=== PATIENT | female | born 1940 | race Caucasian/White ===

== ENCOUNTER → 2024-10-11 10:34 | Outpatient (CLI) | payer MEDICARE, MEDICAID, SELFPAY ==
--- NOTE | 2024-10-11 10:36 | DI.RAD.S_ITS ---
PROCEDURE: XR KNEE 2V WB RIGHT INDICATIONS: Right Knee Pain TECHNIQUE: 3 views of the knee(s) COMPARISON: None. FINDINGS: Bones: No acute fractures or dislocations. Patellar alignment is normal on the sunrise view. No suspicious bony lesions. Moderate to severe tricompartmental osteoarthritis in right knee is noted most notably in medial femoral tibial compartment. Soft tissues: No knee joint effusions. Abnormal metallic densities are noted in medial aspect of bilateral knee soft tissues. IMPRESSION: Moderate to severe tricompartmental osteoarthritis most notably in medial femoral tibial compartment. Metallic foreign bodies in bilateral knee soft tissue. No significant joint effusion. Dictated by: Chad Kingsley M.D. on 10/11/2024 at 19:54 Approved by: Chad Kingsley M.D. on 10/11/2024 at 19:55
== END ==
PROVIDERS: PCP Student in an Organized Health Care Education/Training Program; Referring Provider Urology; Visit Provider Urology
DX: M17.11 Unilateral primary osteoarthritis, right knee (principal); M25.561 Pain in right knee; M79.5 Residual foreign body in soft tissue
CPT/HCPCS: 73560

== ENCOUNTER 2024-10-17 10:03 | Emergency (ER) | payer MEDICARE, MEDICAID, SELFPAY ==
[2024-10-17] VITALS (29 sets, daily range): BP systolic 130–178; BP diastolic 73–108; PULSE 61–171; RESP 13–24; TEMP 36.6; O2SAT 96–100
--- NOTE | 2024-10-17 10:14 | EKG_ITS ---
[place] [id number] [place] [id number] Test Date: 2024-10-17 Pat Name: [place] Heath Department: Room: Gender: Female Concessionist: VERNA : 1940 Requested By: Order Number: [id number] Reading MD: Devante Shah MD Measurements Intervals [place] Rate: 166 P: TN: QRS: 74 QRSD: 96 T: 213 QT: 242 QTc: 402 Interpretive Statements Critical Test Result: High HR Atrial fibrillation with rapid ventricular response ST & T wave abnormality, consider inferior ischemia NO PRIOR TRACING Electronically Signed On 10-18-2024 7:20:44 PDT by Devante Shah MD
--- NOTE | 2024-10-17 10:18 | ED.GENADULT ---
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 She reported experiencing slight shortness of breath, which she attributed to seasonal allergies. Her DPOA and friend, who accompanied her, noted that Indiana's blood pressure had been fluctuating since the previous night. Indiana has a history of intermittent atrial fibrillation and is on Eliquis as a blood thinner. She is also prescribed Metoprolol, which she usually takes at 8:30 AM, but had not taken it today. Indiana recently visited an orthopedic doctor and received a knee injection. [place]'s DPOA mentioned concerns about mood swings and confusion regarding medication routine. She denies any physical symptoms otherwise. Related Data Home Medications Medication Instructions Recorded Confirmed ondansetron 4 mg disintegrating 4 mg PO Q6H 09/12/24 10/16/24 tablet Previous Rx's Medication Instructions Recorded apixaban 5 mg tablet (Eliquis) 5 mg PO BID #60 tabs 09/12/24 atorvastatin 20 mg tablet 20 mg PO DAILY #90 tabs 09/12/24 digoxin 125 mcg (0.125 mg) tablet 125 mcg PO DAILY #90 tabs 09/12/24 fluticasone propionate 50 1 spray intranasal DAILY #16 grams 09/12/24 mcg/actuation nasal spray,suspension lisinopril 2.5 mg tablet 2.5 mg PO DAILY #30 tabs 09/12/24 metoprolol succinate 25 mg 75 mg (3 x 25 mg) PO DAILY #90 tabs 09/12/24 tablet,extended release 24 hr quetiapine 25 mg tablet 25 mg PO BID #60 tabs 09/12/24 quetiapine 50 mg tablet 50 mg PO BEDTIME #60 tabs 09/12/24 spironolactone 25 mg tablet 25 mg PO DAILY #30 tabs 09/12/24 lactulose 10 gram/15 mL oral 15 g (22.5 mL) PO TID #3,785 mL 10/15/24 solution diltiazem HCl 120 mg 120 mg PO DAILY #30 tabs 10/17/24 tablet,extended release 24 hr (Cardizem LA) Allergies Allergy/AdvReac Type Severity Reaction Status Date / Time Penicillins Allergy Severe Anaphylaxis Verified 10/16/24 09:57 codeine AdvReac Unknown Anxiety Verified 10/16/24 09:57 Review of Systems Review of Systems Narrative: All systems reviewed and unremarkable except as noted in the HPI Patient History Medical History (Updated 10/17/24 @ 17:50 by Curt Quinones MD) Primary osteoarthritis of right knee Social History Smoking Status: Unknown if ever smoked Exam Narrative Exam Narrative: VS as noted above Focused physical exam as follows: General: Well developed, well nourished, no acute distress HEENT: pink palpebral conjunctiva, anicteric sclera, MAGGIE, moist mucous membranes, no JVD, no cervical lymphadenopathy Lungs: no respiratory distress, clear to auscultation without wheezes or crackles; equal breath sounds Heart: irregular rhythm, tachycardic Abdomen: soft, nontender, no rebound or rigidity Musculoskeletal: no gross deformities with full ROM in all extremities, no pitting pedal edema Skin: pink, warm; no rashes Neuro: nonfocal exam Psyche: no SI/HI, normal affect Initial Vital Signs Initial Vital Signs: Vital Signs Pulse Rate 61 10/17/24 10:12 Pulse Oximetry 96 10/17/24 10:12 Course Course Course Narrative: Initial VS noted above. ? PMHx, PSHx, Medication list, social history reviewed as noted above. Differential diagnosis considered include (but not limited to) the following: uncontrolled HTN, cardiac dysrhythmia, ACS, electrolyte imbalance, liver or kidney failure, symptomatic anemia, poor med compliance, dehydration, UTI Pt interviewed and examined. No complaints of chest pain, palpitations, shortness of breath, nausea or vomiting. Bedside EKG showed Afib with RVR. Pt did not take her Metoprolol earlier today. Metoprolol 5mg IV ordered. PO Metoprolol given. Still in Afib with RVR. Additional Metoprolol IV ordered. Her usual Digoxin PO dose ordered. Still in Afib with RVR. Paged Dr. Desai (product marketing programs manager) - he advised to give Cardizem IV to help with rate control and if successful, can follow up with cardiology as an outpt. Cardizem IV ordered and HR improved to the 80s now. Discussed plan of care with pt - will place on Cardizem 120mg PO. Stable for discharge. Orders Ordered: Discontinued Medications Digoxin (Digoxin 0.125 Mg Tablet) 0.125 mg PO NOW ONE Stop: 10/17/24 14:21 Last Admin: 10/17/24 14:24 Dose: 0.125 mg Documented By: LEWIS Diltiazem HCl (Diltiazem 25 Mg/5 Ml Sdv) 10 mg IV NOW ONE Stop: 10/17/24 16:39 Last Admin: 10/17/24 16:47 Dose: 10 mg Documented By: LEWIS Metoprolol Succinate (Metoprolol Er 50 Mg Tablet) 75 mg PO NOW ONE Stop: 10/17/24 11:35 Last Admin: 10/17/24 11:52 Dose: 75 mg Documented By: LEWIS Metoprolol Tartrate (Metoprolol Tartrate 5 Mg/5 Ml Inj) 5 mg IV NOW ONE Stop: 10/17/24 10:28 Last Admin: 10/17/24 10:38 Dose: 5 mg Documented By: FRANCO Metoprolol Tartrate (Metoprolol Tartrate 5 Mg/5 Ml Inj) 5 mg IV NOW ONE Stop: 10/17/24 12:40 Last Admin: 10/17/24 12:56 Dose: 5 mg Documented By: LEWIS Vital Signs Vital signs: Vital Signs - 8 hr 10/17/24 10:12 10/17/24 10:15 10/17/24 10:15 Temperature Pulse Rate 61 171 H Respiratory Rate 17 Blood Pressure 169/105 H Pulse Oximetry 96 98 Oxygen Delivery Method 10/17/24 10:22 10/17/24 10:30 10/17/24 10:30 Temperature 98 F Pulse Rate 166 H 164 H Respiratory Rate 18 19 Blood Pressure 169/105 H 178/103 H Pulse Oximetry 99 99 Oxygen Delivery Method Room Air 10/17/24 10:43 10/17/24 10:43 10/17/24 11:00 Temperature Pulse Rate 119 H 138 H Respiratory Rate 14 24 Blood Pressure 150/76 H Pulse Oximetry 98 97 Oxygen Delivery Method 10/17/24 11:01 10/17/24 11:01 10/17/24 11:30 Temperature Pulse Rate 133 H 118 H Respiratory Rate 18 24 Blood Pressure 143/106 H Pulse Oximetry 98 98 Oxygen Delivery Method 10/17/24 11:52 10/17/24 11:56 10/17/24 11:56 Temperature Pulse Rate 104 H 136 H Respiratory Rate 20 Blood Pressure 143/106 H 146/92 H Pulse Oximetry Oxygen Delivery Method 10/17/24 12:00 10/17/24 12:30 10/17/24 12:30 Temperature Pulse Rate 132 H 137 H Respiratory Rate 16 21 Blood Pressure 130/90 Pulse Oximetry 99 99 Oxygen Delivery Method 10/17/24 12:56 10/17/24 13:00 10/17/24 13:00 Temperature Pulse Rate 137 H 127 H Respiratory Rate 22 Blood Pressure 130/90 138/73 Pulse Oximetry 98 Oxygen Delivery Method 10/17/24 13:07 10/17/24 13:30 10/17/24 13:31 Temperature Pulse Rate 119 H 98 H 103 H Respiratory Rate 19 18 Blood Pressure 138/73 Pulse Oximetry 98 98 Oxygen Delivery Method 10/17/24 13:31 10/17/24 14:00 10/17/24 14:00 Temperature Pulse Rate 97 H Respiratory Rate 24 Blood Pressure 153/108 H 143/80 H Pulse Oximetry 98 Oxygen Delivery Method 10/17/24 14:24 10/17/24 14:30 10/17/24 15:00 Temperature Pulse Rate 104 H 141 H 142 H Respiratory Rate 20 18 Blood Pressure 143/80 H Pulse Oximetry 97 97 Oxygen Delivery Method 10/17/24 15:00 10/17/24 15:30 10/17/24 15:30 Temperature Pulse Rate 91 H Respiratory Rate 15 Blood Pressure 140/91 H 148/87 H Pulse Oximetry 97 Oxygen Delivery Method 10/17/24 16:00 10/17/24 16:01 10/17/24 16:01 Temperature Pulse Rate 131 H 142 H Respiratory Rate 14 16 Blood Pressure 144/86 H Pulse Oximetry 100 100 Oxygen Delivery Method 10/17/24 16:30 10/17/24 16:47 10/17/24 17:00 Temperature Pulse Rate 120 H 126 H 145 H Respiratory Rate 13 18 Blood Pressure 172/102 H Pulse Oximetry 98 97 Oxygen Delivery Method 10/17/24 17:01 10/17/24 17:01 10/17/24 17:30 Temperature Pulse Rate 138 H 81 Respiratory Rate 20 19 Blood Pressure 172/102 H Pulse Oximetry 97 97 Oxygen Delivery Method 10/17/24 17:30 Temperature Pulse Rate Respiratory Rate Blood Pressure 145/87 H Pulse Oximetry Oxygen Delivery Method Medical Decision Making Lab Data 10/17/24 10:40 10/17/24 10:40 Labs: Lab Results 10/17/24 10/17/24 10/17/24 Range/Units 10:10 10:40 12:23 WBC 9.3 (4.5-11.0) X10^3/uL RBC 4.17 (4.0-5.2) X10^6/uL Hgb 13.7 (12.0-16.0) g/dL Hct 41.6 (36-46) % MCV 99.9 (80-100) fL MCH 33.0 (26-34) PG MCHC 33.0 (30-36) % RDW 14.6 (11.6-14.8) % Plt Count 213 (150-400) X10^3/uL Neut % (Auto) 78.7 H (50-75) % Lymph % (Auto) 13.5 L (25-40) % [place] % (Auto) 7.5 (3-14) % Eos % (Auto) 0.1 L (2-4) % Baso % (Auto) 0.2 (0-2) % Neut # (Auto) 7300 H (5153-7878) /uL Lymph # (Auto) 1300 (3621-0580) /uL [place] # (Auto) 700 (0-900) /uL Eos # (Auto) 0 (0-450) /uL Baso # (Auto) 0 (0-100) /uL PT 13.1 H (9.4-12.5) SECONDS INR 1.2 (0.9-1.3) APTT 36 (25.1-36.5) SECONDS Sodium 138 (137-145) mmol/L Potassium 5.1 (3.4-5.1) mmol/L Chloride 111 H (98-107) mmol/L Carbon Dioxide 16 L (22-32) mmol/L BUN 52 H (7-17) mg/dL Creatinine 1.53 H (0.52-1.04) mg/dL Estimated GFR 34 L (>60) mL/min BUN/Creatinine Ratio 34.0 H (6-22) Glucose 119 H (70-99) mg/dL Calcium 10.0 (8.4-10.2) mg/dL Total Bilirubin 0.8 (0.2-1.3) mg/dL AST 30 (14-36) IU/L ALT 26 (<35) IU/L Alkaline Phosphatase 90 (38-126) U/L Ammonia (9-30) umol/L Total Creatine Kinase 51 (30-135) U/L Troponin I 0.013 (0.01-0.034) ng/mL Total Protein 8.0 (6.3-8.2) g/dL Albumin 4.5 (3.5-5.0) g/dL Globulin 3.5 (1.7-4.1) g/dL Albumin/Globulin Ratio 1.3 (1.0-2.8) Urine Color Yellow Urine Appearance Clear Urine pH 6.0 (4.5-8.0) Ur Specific [place] 1.020 (1.000-1.035) Urine Protein Negative (Negative) Urine Glucose (UA) Negative (Negative) g/dL Urine Ketones Negative (NEGATIVE) Urine Occult Blood Trace-intact (Negative) Urine Nitrate Negative (Negative) Urine Bilirubin Negative (NEGATIVE) Urine Urobilinogen 0.2 (0.2) E.U./dL Ur Leukocyte Esterase Trace H (NEGATIVE) Urine RBC 0-1/hpf (0-5/HPF) Urine WBC 0-1/hpf (0-5/HPF) Ur Squamous Epith Cells 1-5 /hpf (0-5/HPF) Urine Bacteria Moderate (10-30) H (None) Ur Culture Indicated? Specimen cultured Vol Urine Centrifuged 10ml (spun) Digoxin < 0.4 L (0.8-2.0) ng/mL 10/17/24 Range/Units 17:15 WBC (4.5-11.0) X10^3/uL RBC (4.0-5.2) X10^6/uL Hgb (12.0-16.0) g/dL Hct (36-46) % MCV (80-100) fL MCH (26-34) PG MCHC (30-36) % RDW (11.6-14.8) % Plt Count (150-400) X10^3/uL Neut % (Auto) (50-75) % Lymph % (Auto) (25-40) % [place] % (Auto) (3-14) % Eos % (Auto) (2-4) % Baso % (Auto) (0-2) % Neut # (Auto) (3152-5462) /uL Lymph # (Auto) (6865-8215) /uL [place] # (Auto) (0-900) /uL Eos # (Auto) (0-450) /uL Baso # (Auto) (0-100) /uL PT (9.4-12.5) SECONDS INR (0.9-1.3) APTT (25.1-36.5) SECONDS Sodium (137-145) mmol/L Potassium (3.4-5.1) mmol/L Chloride (98-107) mmol/L Carbon Dioxide (22-32) mmol/L BUN (7-17) mg/dL Creatinine (0.52-1.04) mg/dL Estimated GFR (>60) mL/min BUN/Creatinine Ratio (6-22) Glucose (70-99) mg/dL Calcium (8.4-10.2) mg/dL Total Bilirubin (0.2-1.3) mg/dL AST (14-36) IU/L ALT (<35) IU/L Alkaline Phosphatase (38-126) U/L Ammonia < 9 L (9-30) umol/L Total Creatine Kinase (30-135) U/L Troponin I (0.01-0.034) ng/mL Total Protein (6.3-8.2) g/dL Albumin (3.5-5.0) g/dL Globulin (1.7-4.1) g/dL Albumin/Globulin Ratio (1.0-2.8) Urine Color Urine Appearance Urine pH (4.5-8.0) Ur Specific [place] (1.000-1.035) Urine Protein (Negative) Urine Glucose (UA) (Negative) g/dL Urine Ketones (NEGATIVE) Urine Occult Blood (Negative) Urine Nitrate (Negative) Urine Bilirubin (NEGATIVE) Urine Urobilinogen (0.2) E.U./dL Ur Leukocyte Esterase (NEGATIVE) Urine RBC (0-5/HPF) Urine WBC (0-5/HPF) Ur Squamous Epith Cells (0-5/HPF) Urine Bacteria (None) Ur Culture Indicated? Vol Urine Centrifuged Digoxin (0.8-2.0) ng/mL Point of Care Testing Glucose POC 93 Point of care testing: Point of Care Testing Glucose POC 93 Imaging Data Chest x-ray: Radiologist's Impression: No acute process ECG Data Attestation: I personally reviewed and interpreted this ECG as follows: (1016 = Afib with RVR @ 166; nonspecific STTW changes; QTc 402) Interpretation: Repeat EKG read @ 1125 - Afib @ 97; nonspecific STTW changes; QTc 426 MDM Narrative Medical decision making narrative: MDM HPI, PMHx, PSHx, Medication list, Allergies, ROS and Focused exam were reviewed above.? Differential diagnosis as noted above.? Social determinants affecting care considered (as listed).? All of these were taken into consideration warranting above listed work up.? Consultations as deemed necessary were documented above (if listed). Labs (if ordered and noted above) were independently reviewed by me. Imaging studies (if ordered and noted above) were independently reviewed by me EKG (if noted above) was independently reviewed by me External documents (if reviewed) are documented above Critical Care Time Critical Care Time Critical Care Time: Yes Total Critical Care Time: 60 Attestation: Afib with RVR - multiple doses of IV meds given Discharge Plan Departure Patient Disposition: Home Clinical Impression: Atrial fibrillation with rapid ventricular response Instructions: DI for Atrial Fibrillation Activity Restrictions/Additional Instructions: Continue all current medications. Add Cardizem to your meds to help regulate your heart rate and blood pressure. Follow up with your product marketing programs manager in the next few days. Return to the ER if with worsening symptoms or heart rate over 120. Prescriptions: New diltiazem HCl [Cardizem LA] 120 mg tablet extended release 24 hr 120 mg PO DAILY Qty: 30 0RF No Action ondansetron 4 mg tablet,disintegrating 4 mg PO Q6H Eliquis 5 mg tablet 5 mg PO BID Qty: 60 3RF atorvastatin 20 mg tablet 20 mg PO DAILY Qty: 90 3RF digoxin 125 mcg (0.125 mg) tablet 125 mcg PO DAILY Qty: 90 3RF Rx Instructions: hold if HR < 60 fluticasone propionate 50 mcg/actuation spray,suspension 1 spray intranasal DAILY Qty: 16 3RF Rx Instructions: administer into each nostril metoprolol succinate 25 mg tablet extended release 24 hr 75 mg PO DAILY Qty: 90 3RF quetiapine 25 mg tablet 25 mg PO BID Qty: 60 3RF lisinopril 2.5 mg tablet 2.5 mg PO DAILY Qty: 30 3RF spironolactone 25 mg tablet 25 mg PO DAILY Qty: 30 3RF quetiapine 50 mg tablet 50 mg PO BEDTIME Qty: 60 6RF lactulose 10 gram/15 mL solution 15 g PO TID Qty: 3785 3RF methylprednisolone acetate [Depo-Medrol] 40 mg/mL suspension 40 mg IM ONCE Qty: 40 0RF Referrals: Jaja Conrad MD [Primary Care Provider] - Stand Alone Forms: Patient Portal/API/Survey
--- NOTE | 2024-10-17 10:27 | DI.RAD.S_ITS ---
PROCEDURE: XR CHEST 1V INDICATIONS: hypertension TECHNIQUE: One view of the chest was acquired. COMPARISON: None. FINDINGS: Surgical changes and devices: None. Lungs and pleura: Lungs are clear. No pleural effusions or pneumothorax. Mediastinum: Mediastinal contours appear normal. Heart is enlarged. Bones and chest wall: No suspicious bony lesions. Overlying soft tissues appear unremarkable. IMPRESSION: No acute cardiopulmonary abnormality is seen. Dictated by: Michelle Ruby MD, PhD on 10/17/2024 at 11:04 Approved by: Michelle Ruby MD, PhD on 10/17/2024 at 11:05
[2024-10-17] MEDS: METOPROLOL TARTRATE 5 MG/5 ML INJ IV ×2 (10:38→12:56)
--- NOTE | 2024-10-17 10:46 | EKG_ITS ---
[address] [address] Test Date: 2024-10-17 Pat Name: [place] Heath Department: Room: Gender: Female Director Banking: : 1940 Requested By: Order Number: [id number] Reading MD: Devante Shah MD Measurements Intervals [place] Rate: 97 P: OR: QRS: 67 QRSD: 98 T: 72 QT: 336 QTc: 426 Interpretive Statements Atrial fibrillation Electronically Signed On 10-18-2024 7:21:16 PDT by Devante Shah MD
[2024-10-17 10:53] LABS: Add Manual Diff / Slide Review NO; Basophils Absolute Auto 0 /uL (0-100); Basophils Percent Auto 0.2 % (0-2); Eosinophils Absolute Auto 0 /uL (0-450); Eosinophils Percent Auto 0.1 % (2-4); Hematocrit 41.6 % (36-46); Hemoglobin 13.7 g/dL (12.0-16.0); Lymphocytes Absolute Auto 1300 /uL (1100-4500); Lymphocytes Percent Auto 13.5 % (25-40); Mean Corpuscular Volume 99.9 fL (80-100); Monocytes Absolute Auto 700 /uL (0-900); Monocytes Percent Auto 7.5 % (3-14); Neutrophils Absolute Auto 7300 /uL (1500-7000); Neutrophils Percent Auto 78.7 % (50-75); Platelet Count 213 X10^3/uL (150-400); Red Blood Cell Count 4.17 X10^6/uL (4.0-5.2); Red Cell Distribution Width 14.6 % (11.6-14.8); White Blood Cell Count 9.3 X10^3/uL (4.5-11.0)
[2024-10-17 11:00] LABS: INR 1.2 (0.9-1.3); Prothrombin Time 13.1 SECONDS (9.4-12.5)
[2024-10-17 11:02] LABS: PTT Partial Thromboplastin Tim 36 SECONDS (25.1-36.5)
[2024-10-17 11:06] LABS: Alanine Aminotransferase 26 IU/L (<35); Albumin 4.5 g/dL (3.5-5.0); Albumin Globulin Ratio 1.3 (1.0-2.8); Alkaline Phosphatase 90 U/L (38-126); Aspartate Aminotransferase 30 IU/L (14-36); Bilirubin Total 0.8 mg/dL (0.2-1.3); Blood Urea Nitrogen 52 mg/dL (7-17); Carbon Dioxide 16 mmol/L (22-32); Chloride 111 mmol/L (98-107); Creatine Kinase 51 U/L (30-135); Estimated Glomerular Filt Rate 34 mL/min (>60); Globulin 3.5 g/dL (1.7-4.1); Glucose 119 mg/dL (70-99); HEMOLYSIS 27 (0-50); Potassium 5.1 mmol/L (3.4-5.1); Sodium 138 mmol/L (137-145)
[2024-10-17 11:17] LABS: Troponin I 0.013 ng/mL (0.01-0.034)
[2024-10-17] MEDS: METOPROLOL ER 50 MG TABLET 75 MG PO (11:52)
[2024-10-17 12:38] LABS: Appearance Urine UA CLEAR; Bilirubin Urine UA NEGATIVE (NEGATIVE); Color Urine UA YELLOW; Glucose Urine UA NEGATIVE (Negative); Ketones Urine UA NEGATIVE (NEGATIVE); Leukocyte Esterase Urine UA TRACE (NEGATIVE); Nitrite Urine UA NEGATIVE (Negative); Occult Blood Urine UA TRACE-INTACT (Negative); Protein Urine UA NEGATIVE (Negative); Urobilinogen Urine UA 0.2 E.U./dL (0.2)
[2024-10-17 12:40] LABS: Urine Volume 10mL (spun)
[2024-10-17 12:43] LABS: Bacteria Urine Moderate (10-30); Culture Indicated Urine Specimen Cultured; RBC Urine 0-1/HPF (0-5/HPF); Squamous Epithelial Cell Urine 1-5 /HPF (0-5/HPF); WBC Urine 0-1/HPF (0-5/HPF)
[2024-10-17 13:32] LABS: Digoxin < 0.4 ng/mL (0.8-2.0)
[2024-10-17] MEDS: DIGOXIN 0.125 MG TABLET PO (14:24)
[2024-10-17] MEDS: dilTIAZem 25 MG/5 ML SDV 10 MG IV (16:47)
--- NOTE | 2024-10-17 17:31 | EKG_ITS ---
[address] [address] Test Date: 2024-10-17 Pat Name: [place] Heath Department: Room: Gender: Female Due Diligence Coordinator: BOUBACAR : 1940 Requested By: Order Number: [id number] Reading MD: Devante Shah MD Measurements Intervals [place] Rate: 80 P: AR: QRS: 82 QRSD: 102 T: 90 QT: 370 QTc: 426 Interpretive Statements Atrial fibrillation Cannot rule out Anterior infarct , age undetermined Electronically Signed On 10-18-2024 7:23:48 PDT by Devante Shah MD
[2024-10-17 17:38] LABS: Ammonia (NH3) < 9 umol/L (9-30)
== END 2024-10-17 18:06 | disposition home or self-care (01) ==
PROVIDERS: Emergency Provider Emergency Medicine; PCP Student in an Organized Health Care Education/Training Program
DX: I48.91 Unspecified atrial fibrillation (principal); R06.02 Shortness of breath; Z79.01 Long term (current) use of anticoagulants
CPT/HCPCS: 71045; 80053; 80162; 81001; 82140; 82550; 82962; 84484; 85025; 85610; 85730; 87086; 93005; 93010; 96374; 96375; 96376; 99284; 99291

== ENCOUNTER 2024-10-29 11:48 | Emergency (ER) | payer MEDICARE, MEDICAID, SELFPAY ==
[2024-10-29] VITALS (8 sets, daily range): BP systolic 113–153; BP diastolic 63–89; PULSE 75–91; RESP 16–22; TEMP 36.1–36.6; O2SAT 92–100
--- NOTE | 2024-10-29 13:38 | CM.SWNOTE ---
ED CNC OPERATOR MACHINIST Assessment Note: CNC OPERATOR MACHINIST - Rechecker Assessment CNC OPERATOR MACHINIST/Rechecker Assessment Time Spent with Patient Start date 10/29/24 Visit Start Time 12:30 End date 10/29/24 Visit End Time 13:00 Total time Care Management spent on 30 minutes patient visit-in minutes Mental Health Screening Include Onset, Duration, Intensity Presenting Problem Patient presented to the ED by the recommendation of her PCP (Dr. Jaja Lehman) because of her reports of visual hallucinations and delusions. Patient has a hx of stroke in December 2023, afib, and metabolic encephalopathy. Patient discussed with her PCP and is agreeable to inpatient treatment for medication stabilization. Precipitating Event(s) Patient states she has been having difficulty with sleep and having restful sleep due to some recent vivid dreams in which she has been having difficulty with determining if they are real vs. still a dream. Patient reports she has been experiencing hallucinations that have been manifesting from her dreams and her DPOA/friend confirms that they do not experience them. Patient Strengths Patient is supported by her friend/POA, Latha Tello (ph# [phone]) at bedside. It is reported that since her stroke and long rehab stay, her DPOA has been staying at her apartment for extra support. Current Behavioral Health Provider(s) None reported. Include Facility, Provider, Ph. # Psych. Hx Mental Health and Chemical Hx of hallucinations and Dependency delusions, currently taking quetiapine 20mg QAM and 75mg QPM. Family Hx of Behavioral Abuse None reported. Psychiatric Hospitalizations (date(s)/ None reported. location) Psychosocial information & Support Patient is a 84yo female, Systems resident of [facility]. Patient has a friend/DPOA staying with her in her apartment since August 2024. School/Work Patient is retired and not currently working. Legal Concerns Legal Matters - Outstanding Issues None reported. Mental Status Orientation (Person/Place/Time) AOx3 Affect (Congruent with Mood?) Congruent with mood, flat Thought Content - Specify/Describe Auditory: Denied. Obsessions, Delusions, Hallucinations Visual: The other day, I saw a narcisa from my dreams named Lawrence. He was in the elevator with me and (DPOA). He wasn't talking to me but he was in and out of the elevator and ( DPOA) couldn't see him. Thought Processes (Wtvnjyr-Yttumssd-Pxkq Logical, goal directed, Jiozbhee-Jczmknhe-Tftolkkmsj- thought blocking Yypzkbimxlxxci-Ffhyzoi-Lgcbcobzlvyp- Thought Blocking) Speech (Wruhcp-Aczu-Aqptbwt-Rapid-Soft- Normal, soft Loud-Pressured) Motor (Hbejtb-Hldqgcuoc-Mwma-Other) Slow Insight (Gzfk-Xlot-Xtov/Limited) Fair Judgement (Qaoc-Xmmz-Ietv/Limited) Fair Impulse Control (Adequate-Impaired) Adequate Memory (Bdsthoogp-Utcqbs-Bnrawv, Remote, parts counterman is intact Impaired-Intact) Concentration (Intact-Impaired) Intact Attention (Intact-Impaired) Intact Behavior (Appropriate-Inappropriate) Appropriate Additional Comment Patient is calm, cooperative and communicative during assessment. Risk Assessment Suicidal Ideation (Plan) No Homicidal Ideation (Plan) No Intervention Intervention Reviewed chart and discussed with ED Provider pt's medical status and discharge needs. Discussed pt with pt PCP who is referring pt to the ED for hallucations and possible inpatient psych treatment for medication stabilization. ED CNC OPERATOR MACHINIST meets with patient. Patient endorses having difficulty determining reality vs. dreams due to hallucinations manifesting from her dreams. Patient explains she has been attempting to stabilize on her medications (quetiapine) at home but does not feel it is effective as she continues to experience hallucinations in her daily life. Patient also recognizes difficulty with having restful sleep which she believes is attributing to her mood/hallucations. ED CNC OPERATOR MACHINIST and patient discuss goals of care. Patient explains they are agreeable to receive inpatient behavioral health hospitalization at this time. At this time, it is the opinion of this CNC OPERATOR MACHINIST that patient would benefit from inpatient psychiatric hospitalization for medication and crisis stabilization. CNC OPERATOR MACHINIST informs ED provider, Dr. Gibbons, who indicates agreement . CNC OPERATOR MACHINIST informs EDWARDO Ortiz RA Plan Once patient is medically clear, ED staff will attempt to find inpatient placement for patient. MARILEE Roman
--- NOTE | 2024-10-29 17:53 | EKG_ITS ---
[place] [address] [address], [place] [address] Test Date: 2024-10-29 Pat Name: [place] Heath Department: Room: Gender: Female Classified Advertising Supervisor: JOSI : 1940 Requested By: Order Number: [id number] Reading MD: Joshua Ruffin Measurements Intervals [place] Rate: 91 P: MA: QRS: 61 QRSD: 100 T: 115 QT: 350 QTc: 430 Interpretive Statements Atrial fibrillation Electronically Signed On 10-31-2024 16:20:06 PDT by Joshua Ruffin
--- NOTE | 2024-10-29 17:54 | DI.CT.S_ITS ---
PROCEDURE: CT HEAD/BRAIN WO CON INDICATIONS: altered mental status on eliquis TECHNIQUE: Noncontrast 4.5 mm thick angled axial sections acquired from the foramen magnum to the vertex, with coronal and sagittal reformats. For radiation dose reduction, the following was used: automated exposure control, adjustment of mA and/or kV according to patient size. COMPARISON: None. FINDINGS: Image quality: Diagnostic CSF spaces: Basal cisterns are patent. Lateral ventricles are symmetric. Volume: Vascular calcifications. Periventricular white matter disease is commonly seen with chronic microangiopathy. Volume loss is present. These findings are moderate Brain: Right parietal encephalomalacia, nonacute appearing. No acute hematoma. No acute appearing gross loss of bean-white differentiation. Craniofacial structures: No significant paranasal sinus opacity. Calvarial hyperostosis. IMPRESSION: No acute hemorrhage. Nonacute appearing right parietal encephalomalacia. Dictated by: Edwar Ford M.D. on 10/29/2024 at 18:17 Approved by: Edwar Ford M.D. on 10/29/2024 at 18:18
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
[2024-10-29 18:52] LABS: Add Manual Diff / Slide Review NO; Basophils Absolute Auto 0 /uL (0-100); Basophils Percent Auto 0.7 % (0-2); Eosinophils Absolute Auto 200 /uL (0-450); Eosinophils Percent Auto 4.1 % (2-4); Hematocrit 39.4 % (36-46); Hemoglobin 13.1 g/dL (12.0-16.0); Lymphocytes Absolute Auto 1500 /uL (1100-4500); Lymphocytes Percent Auto 25.5 % (25-40); Mean Corpuscular HGB Conc 33.3 % (30-36); Mean Corpuscular Hemoglobin 33.2 PG (26-34); Mean Corpuscular Volume 99.6 fL (80-100); Monocytes Absolute Auto 500 /uL (0-900); Neutrophils Absolute Auto 3500 /uL (1500-7000); Neutrophils Percent Auto 60.7 % (50-75); Platelet Count 201 X10^3/uL (150-400); Red Blood Cell Count 3.95 X10^6/uL (4.0-5.2); Red Cell Distribution Width 14.3 % (11.6-14.8); White Blood Cell Count 5.8 X10^3/uL (4.5-11.0)
[2024-10-29 19:06] LABS: Alanine Aminotransferase 26 IU/L (<35); Albumin Globulin Ratio 1.3 (1.0-2.8); Alkaline Phosphatase 73 U/L (38-126); Aspartate Aminotransferase 34 IU/L (14-36); BUN Creatinine Ratio 30.4 (6-22); Bilirubin Total 0.7 mg/dL (0.2-1.3); Blood Urea Nitrogen 52 mg/dL (7-17); Calcium 9.3 mg/dL (8.4-10.2); Carbon Dioxide 23 mmol/L (22-32); Chloride 108 mmol/L (98-107); Creatine Kinase 60 U/L (30-135); Estimated Glomerular Filt Rate 29 mL/min (>60); Ethanol (ETOH) < 10 mg/dL; Glucose 114 mg/dL (70-99); HEMOLYSIS 41 (0-50); Potassium 5.3 mmol/L (3.4-5.1); Sodium 137 mmol/L (137-145)
[2024-10-29 19:10] LABS: Digoxin 0.7 ng/mL (0.8-2.0)
[2024-10-29 19:15] LABS: Ur Creatinine Normal (Normal); Ur Specific Gravity Normal (Normal); Urine Amphetamines Negative (Negative); Urine Barbiturates Negative (Negative); Urine Benzodiazepines Negative (Negative); Urine Cocaine Negative (Negative); Urine MDMA Negative (Negative); Urine Methadone Negative (Negative); Urine Opiates Negative (Negative); Urine Oxycodone Negative (Negative); Urine Phencyclidine Negative (Negative); Urine THC Negative (Negative); Urine Tricyclic Antidepressant Negative (Negative); Urine pH Normal (Normal)
[2024-10-29 19:18] LABS: Troponin I 0.012 ng/mL (0.01-0.034)
[2024-10-29] MEDS: SODIUM CHLORIDE 0.9% 500 ML 1000 ML IV (19:25)
[2024-10-29 19:37] LABS: Thyroid Stimulating Hormone 3.86 uIU/mL (0.47-4.68)
--- NOTE | 2024-10-29 19:49 | CM.SWNOTE ---
ED ROUGH AND TRUEING MACHINE OPERATOR Note: Per Provider, pt can be medically cleared to go home with caregiver with close follow up and medication adjustment. ED ROUGH AND TRUEING MACHINE OPERATOR calls [facility] [place], Ranjith, and confirms pt's [facility] Loss Prevention Specialist. ED ROUGH AND TRUEING MACHINE OPERATOR left a voice message, requesting a call back for further coordination. ED ROUGH AND TRUEING MACHINE OPERATOR sent new orders for RN, PT, ROUGH AND TRUEING MACHINE OPERATOR and HH Aide to pt preferred home health agency, [facility], via fax. Sent clinicals as well. ED ROUGH AND TRUEING MACHINE OPERATOR provided [facility], crisis contacts with pt and caregiver. ED ROUGH AND TRUEING MACHINE OPERATOR discussed home health orders placed. ED ROUGH AND TRUEING MACHINE OPERATOR provided [facility], Nazia Suárez, ph# [phone], to pt and caregiver who will continue attempting to connect to get pt alloted 168 hours of [facility] caregiving (per POA). ED ROUGH AND TRUEING MACHINE OPERATOR discussed plan of care with pt and caregiver, all verbalized understanding. Plan: Pt to discharge home with caregiver/POA when medically cleared. Follow up with [facility] and PCP for close follow up, crisis contacts available. MARILEE Roman
== END 2024-10-29 20:37 | disposition home or self-care (01) ==
PROVIDERS: Emergency Provider Emergency Medicine; PCP Student in an Organized Health Care Education/Training Program
DX: R44.1 Visual hallucinations (principal); R44.0 Auditory hallucinations; I48.91 Unspecified atrial fibrillation; Z79.01 Long term (current) use of anticoagulants
CPT/HCPCS: 36415; 70450; 80053; 80162; 80305; 80320; 81003; 82550; 84443; 84484; 85025; 93005; 96360; 99284

== ENCOUNTER → 2024-12-18 10:04 | Outpatient (CLI) | payer MEDICARE, MEDICAID, SELFPAY | PROVIDERS: PCP Student in an Organized Health Care Education/Training Program; Visit Provider Family Medicine | DX: R44.0 Auditory hallucinations (principal); F02.818 Dementia in other diseases classified elsewhere, unspecified severity, with other behavioral disturbance; R44.1 Visual hallucinations; Z86.73 Personal history of transient ischemic attack (TIA), and cerebral infarction without residual deficits | CPT/HCPCS: 87086 ==

== ENCOUNTER 2024-12-18 10:34 | Emergency (ER) | payer MEDICARE, MEDICAID, SELFPAY ==
[2024-12-18 10:52] VITALS: BP 143/79; PULSE 92; RESP 18; TEMP 36.7; O2SAT 97; BMI 32.5
--- NOTE | 2024-12-18 10:59 | DI.RAD.S_ITS ---
PROCEDURE: XR CHEST 1V INDICATIONS: a fib TECHNIQUE: One view of the chest was acquired. COMPARISON: [facility], CR, XR CHEST 1V, 10/17/2024, 10:48. FINDINGS: Surgical changes and devices: None. Lungs and pleura: Small faceted at the left costophrenic angle. No pneumothorax. Mediastinum: Cardiac silhouette is enlarged. Bones and chest wall: No suspicious bony lesions. Overlying soft tissues appear unremarkable. IMPRESSION: 1. Small peripheral opacity at the left costophrenic angle may represent atelectasis, consolidation, or small effusion. 2. Mild cardiomegaly. Approved by: Ramesh Enriquez M.D. on 12/18/2024 at 11:55
[2024-12-18 11:00] VITALS: PULSE 83; RESP 14; O2SAT 98
--- NOTE | 2024-12-18 11:00 | ED.GENADULT ---
HPI - General Adult General Chief complaint: Altered Mental Status Stated complaint: Hallucinations, self harm. pain in head and neck Time Seen by Provider: 12/18/24 10:41 History of Present Illness HPI narrative: 84-year-old woman with a history of dementia associated with increasing hallucinations, atrial fibrillation on digoxin/diltiazem/apixaban/metoprolol, lisinopril for hypertension, quetiapine 25 mg twice a day with an extra 100 mg at bedtime brought in by her dgiqf-si-gloufehw with concern for change in behavior. Patient was complaining of body aches and chills however when asked about the specifically she points to her low back and then mid thigh and is inconsistent when we circled back to the question of body aches. She is very consistent about the people coming into her room including a man with no eyes but hold all the way through his head, ladrajat is also coming into her room. She told her friend/wzmzz-jj-aennhfsm that she was feeling suicidal and the friend was concerned that she was a bit more aggressive than normal. When questioned about the suicidal ideation she states ?I have been trying to come up with a plan but more people coming into my room when I do this, clearly no obvious plan and this is passive ideation only. Her chlfb-em-vrayduum took her into her primary care doctor's office this morning urinalysis was done reportedly was positive and she was sent to the emergency department. In reviewing that note, patient had a urinalysis that was completely unremarkable but with the increased confusion, the primary physician request an ER visit. Patient apparently has been having increasing morning urgency over the last month but then states she has no pain at all and does not feel that she has a bladder infection. Related Data Home Medications ?Medication ?Instructions ?Recorded ?Confirmed ondansetron 4 mg disintegrating 4 mg PO Q6H 09/12/24 12/18/24 tablet Previous Rx's ?Medication ?Instructions ?Recorded atorvastatin 20 mg tablet 20 mg PO DAILY #90 tabs 09/12/24 digoxin 125 mcg (0.125 mg) tablet 125 mcg PO DAILY #90 tabs 09/12/24 fluticasone propionate 50 1 spray intranasal DAILY #16 grams 09/12/24 mcg/actuation nasal spray,suspension lactulose 10 gram/15 mL oral 15 g (22.5 mL) PO TID #3,785 mL 10/15/24 solution diltiazem HCl 120 mg 120 mg PO DAILY #90 tabs 10/29/24 tablet,extended release 24 hr (Cardizem LA) quetiapine 50 mg tablet 100 mg (2 x 50 mg) PO BEDTIME #60 11/21/24 tabs apixaban 5 mg tablet (Eliquis) 5 mg PO BID #60 tabs 12/17/24 lisinopril 2.5 mg tablet 2.5 mg PO DAILY #90 tabs 12/17/24 metoprolol succinate 25 mg 75 mg (3 x 25 mg) PO DAILY #90 tabs 12/17/24 tablet,extended release 24 hr quetiapine 25 mg tablet 25 mg PO BID #60 tabs 12/17/24 spironolactone 25 mg tablet 25 mg PO DAILY #30 tabs 12/17/24 Allergies Allergy/AdvReac Type Severity Reaction Status Date / Time Penicillins Allergy Severe Anaphylaxis Verified 12/18/24 09:29 codeine AdvReac Unknown Anxiety Verified 12/18/24 09:29 Review of Systems Review of Systems Narrative: Pertinent positive and negative findings as per HPI Patient History Medical History (Updated 12/18/24 @ 12:00 by Daniella Pineda MD) A-fib Hyperlipidemia Acute on chronic heart failure Status post CVA Status post myocardial infarction Auditory hallucination Visual hallucination History of alcohol use Major neurocognitive disorder, due to multiple etiologies, with behavioral disturbance Primary osteoarthritis of right knee Social History Smoking Status: Never smoker Exam Initial Vital Signs Initial Vital Signs: Vital Signs Temperature 98.1 F 12/18/24 10:52 Pulse Rate 92 H 12/18/24 10:52 Respiratory Rate 18 12/18/24 10:52 Blood Pressure 143/79 H 12/18/24 10:52 Pulse Oximetry 97 12/18/24 10:52 Oxygen Delivery Method Room Air 12/18/24 10:52 General: Older appearing, in no acute distress. HEENT: Moist mucous membranes, normal sclera with reactive pupils, head is atraumatic Respiratory: Lungs are clear to auscultation, no wheezing no rales no rhonchi. Full and symmetrical air movement Cardiac: Irregular, rate in the 100 range Abdomen: Soft, nontender, no rebound or guarding, no flank pain Skin: Warm and dry, no rashes Neurologic: Grossly neurologically intact with no obvious asymmetries or abnormalities Extremities: No trauma, significant lower extremity bruising, no significant pitting edema Psych: Cooperative, short term memory loss, fixed paranoid delusions, she is not currently responding to active internal stimuli, no auditory or visual hallucinations in the emergency department Course Orders Ordered: ED Orders 12/18/24 10:59 XR chest 1V Stat Urinalysis and Microscopic Stat EKG-12 Lead Stat 12/18/24 11:02 Complete Blood Count AUTO DIFF Stat Comprehensive Metabolic Panel Stat Digoxin Stat Lipase Stat Magnesium Stat NT-proBNP (BNP-Adult 18+) Stat Troponin I Stat 12/18/24 12:00 Blood Culture Stat 12/18/24 12:08 Consult to LEAD GENERATOR - Tempering Oven Operator Stat Discontinued Medications Lactulose (Lactulose 20 Gm/30 Ml Solution) 20 gm PO NOW ONE Stop: 12/18/24 11:49 Last Admin: 12/18/24 12:02 Dose: 20 gm Documented By: MARKIE Vital Signs Vital signs: Vital Signs - 8 hr 12/18/24 10:52 12/18/24 11:00 12/18/24 11:30 Temperature 98.1 F Pulse Rate 92 H 83 80 Respiratory Rate 18 14 16 Blood Pressure 143/79 H Pulse Oximetry 97 98 97 Oxygen Delivery Method Room Air 12/18/24 12:00 Temperature Pulse Rate 98 H Respiratory Rate 17 Blood Pressure 143/79 H Pulse Oximetry Oxygen Delivery Method Medical Decision Making Lab Data 12/18/24 11:02 12/18/24 11:02 Labs: Lab Results 12/18/24 Range/Units 11:02 WBC 6.3 (4.5-11.0) X10^3/uL RBC 3.81 L (4.0-5.2) X10^6/uL Hgb 13.0 (12.0-16.0) g/dL Hct 37.6 (36-46) % MCV 98.6 (80-100) fL MCH 34.0 (26-34) PG MCHC 34.5 (30-36) % RDW 13.5 (11.6-14.8) % Plt Count 222 (150-400) X10^3/uL Neut % (Auto) 58.9 (50-75) % Lymph % (Auto) 27.3 (25-40) % Cedar % (Auto) 9.1 (3-14) % Eos % (Auto) 3.9 (2-4) % Baso % (Auto) 0.8 (0-2) % Neut # (Auto) 3700 (4152-3583) /uL Lymph # (Auto) 1700 (7308-2336) /uL Cedar # (Auto) 600 (0-900) /uL Eos # (Auto) 200 (0-450) /uL Baso # (Auto) 0 (0-100) /uL Sodium 136 L (137-145) mmol/L Potassium 5.0 (3.4-5.1) mmol/L Chloride 105 (98-107) mmol/L Carbon Dioxide 23 (22-32) mmol/L BUN 51 H (7-17) mg/dL Creatinine 2.08 H (0.52-1.04) mg/dL Estimated GFR 23 L (>60) mL/min BUN/Creatinine Ratio 24.5 H (6-22) Glucose 102 H (70-99) mg/dL Calcium 9.7 (8.4-10.2) mg/dL Magnesium 2.4 H (1.6-2.3) mg/dL Total Bilirubin 0.7 (0.2-1.3) mg/dL AST 29 (14-36) IU/L ALT 18 (<35) IU/L Alkaline Phosphatase 89 (38-126) U/L Troponin I < 0.012 (0.01-0.034) ng/mL NT-Pro-B Natriuret Pep 2260 H (<450) pg/mL Total Protein 7.8 (6.3-8.2) g/dL Albumin 4.3 (3.5-5.0) g/dL Globulin 3.5 (1.7-4.1) g/dL Albumin/Globulin Ratio 1.2 (1.0-2.8) Lipase 67 (23-300) U/L Digoxin 0.6 L (0.8-2.0) ng/mL MDM Narrative Medical decision making narrative: CC: Increased confusion Complicating co-morbidities: Dementia with behavioral disturbance, atrial fibrillation, congestive heart failure, prior stroke, Data collected from: patient Social determinants of health that may influence the patients condition: Accompanied by her dxgto-rd-emxtgmyl/friend sounds like she lives with her most of the time. Medical records reviewed: Recent primary care notes, ER visit from October 29 for similar complaints, psychiatry visit from November 21 are reviewed all consistent with similar complaints She did have a CT scan of her head in October of this year with no acute findings. Differential considered: Dementia with behavioral disturbances, infection, medication side effects, Exam documented above, pertinent findings include: Patient seems calm, polite, somewhat confused but very consistent descriptions of the people that are coming to her in her room. She is not complaining of any pain does not have pain on physical exam Lab Test results independently reviewed as above. Pertinent findings: CBC is unremarkable Chemistries show slight increase in creatinine from 1.7-2.0. Magnesium minimally elevated at 2.4 Urine dip is unremarkable Digoxin level is .6, slightly low so are to prior levels Imaging studies independently reviewed: Chest x-ray is unremarkable, no acute abnormalities Consultations: LEAD GENERATOR, help with beginning to consider dementia care facilities discussed Treatments: Patient is able to eat and drink without difficulty, she is given a snack, large glass of water and her mid day lactulose. Discussion: 84-year-old woman with progressive dementia with behavioral outbursts and progressive visual and auditory hallucinations. Today seems to be a particularly bad morning. No obvious medical abnormalities to explain the change. No evidence of urinary tract infection, she is in her usual atrial fibrillation, no acute coronary syndrome, baseline hypertension. Not currently hallucinating, appropriate, able to eat and walk. CT scan done in October of head did not show new findings and is not indicated today. We will have her continue with all of her usual medications. Did discuss progressive dementia and difficulty with providing single person care as her disease continuous with her POA and caregiver. At this time there was no indication for hospitalization or further workup and she is safe for discharge Discharge Plan Departure Patient Disposition: Home Clinical Impression: Dementia with behavioral disturbance Instructions: DI for Alzheimer Dementia Exacerbations Activity Restrictions/Additional Instructions: Thank you for coming in today I am sorry there seemed to be a bit more confusion, anger and more people visiting you in an unpleasant way this morning. Fortunately your medical workup today is quite reassuring. I do not see any evidence of infection, no bladder infection there was no indication that we need to do any head scans or change any of your medications at this time We did give you some additional resources on looking at facilities that might be a good fit for you within the next year or so knowing that your dementia is going to slowly get worse. If you find that you are getting worse or develop any new symptoms, please feel free to return to the emergency department for further evaluation. Prescriptions: No Action diltiazem HCl [Cardizem LA] 120 mg tablet extended release 24 hr 120 mg PO DAILY Qty: 90 3RF ondansetron 4 mg tablet,disintegrating 4 mg PO Q6H atorvastatin 20 mg tablet 20 mg PO DAILY Qty: 90 3RF digoxin 125 mcg (0.125 mg) tablet 125 mcg PO DAILY Qty: 90 3RF Rx Instructions: hold if HR < 60 fluticasone propionate 50 mcg/actuation spray,suspension 1 spray intranasal DAILY Qty: 16 3RF Rx Instructions: administer into each nostril lactulose 10 gram/15 mL solution 15 g PO TID Qty: 3785 3RF quetiapine 50 mg tablet 100 mg PO BEDTIME Qty: 60 6RF Eliquis 5 mg tablet 5 mg PO BID Qty: 60 3RF lisinopril 2.5 mg tablet 2.5 mg PO DAILY Qty: 90 3RF spironolactone 25 mg tablet 25 mg PO DAILY Qty: 30 3RF quetiapine 25 mg tablet 25 mg PO BID Qty: 60 5RF metoprolol succinate 25 mg tablet extended release 24 hr 75 mg PO DAILY Qty: 90 5RF methylprednisolone acetate [Depo-Medrol] 40 mg/mL suspension 40 mg IM ONCE Qty: 40 0RF Referrals: Jaja Conrad MD [Primary Care Provider, Family Practice] Stand Alone Forms: Patient Portal/API
[2024-12-18 11:20] LABS: Add Manual Diff / Slide Review NO; Hematocrit 37.6 % (36-46); Hemoglobin 13.0 g/dL (12.0-16.0); Lymphocytes Absolute Auto 1700 /uL (1100-4500); Mean Corpuscular HGB Conc 34.5 % (30-36); Mean Corpuscular Hemoglobin 34.0 PG (26-34); Mean Corpuscular Volume 98.6 fL (80-100); Platelet Count 222 X10^3/uL (150-400)
[2024-12-18 11:30] VITALS: PULSE 80; RESP 16; O2SAT 97
[2024-12-18 11:33] LABS: Alanine Aminotransferase 18 IU/L (<35); Albumin 4.3 g/dL (3.5-5.0); Albumin Globulin Ratio 1.2 (1.0-2.8); Alkaline Phosphatase 89 U/L (38-126); Blood Urea Nitrogen 51 mg/dL (7-17); Calcium 9.7 mg/dL (8.4-10.2); Carbon Dioxide 23 mmol/L (22-32); Chloride 105 mmol/L (98-107); Estimated Glomerular Filt Rate 23 mL/min (>60); Globulin 3.5 g/dL (1.7-4.1); Glucose 102 mg/dL (70-99); HEMOLYSIS < 15 (0-50); Lipase 67 U/L (23-300); Magnesium 2.4 mg/dL (1.6-2.3); Potassium 5.0 mmol/L (3.4-5.1); Sodium 136 mmol/L (137-145); Total Protein 7.8 g/dL (6.3-8.2)
[2024-12-18 11:35] LABS: Digoxin 0.6 ng/mL (0.8-2.0)
[2024-12-18 11:44] LABS: NT-proBNP (BNP-Adult 18+) 2260 pg/mL (<450); Troponin I < 0.012 ng/mL (0.01-0.034)
[2024-12-18 12:00] VITALS: BP 143/79; PULSE 98; RESP 17
[2024-12-18] MEDS: LACTULOSE 20 GM/30 ML SOLUTION PO (12:02)
[2024-12-18 13:14] VITALS: BP 146/87; PULSE 82
--- NOTE | 2024-12-18 14:08 | CM.SWNOTE ---
ED WAITER/WAITRESS FIRST CLASS Assessment Note Patient is 84 y/o female who presents to ED with friend/POA after PCP appt due to concern for patient's AMS. Patient has hx of Dementia. Patient's PCP is Dr. Conrad, patient has Medicare and Medicaid insurance. Patient sees Psychiatrist Dr. Pollack and has upcoming appt on 12/31/24 and PCP f/u on 01/14/25. Patient presents as pleasant in ED. Patient denies any concern for self harm. It is reported by POA that patient has been having bad dreams and experiencing hallucinations. It is reported that patient's POA checks on her daily and assists with medication management and ADLs as needed. Patient has HCS circulation manager through [facility] and is allotted 168 hours a month of caregiving but has not been able to obtain a caregiver. WAITER/WAITRESS FIRST CLASS calls CM and leaves requesting new assessment to determine criteria for placement in a memory care facility. WAITER/WAITRESS FIRST CLASS provides POA with lists of private caregivers, encourages her to reach out to [facility] for assistance and follow up with CM for assistance in obtaining a caregiver for patient. WAITER/WAITRESS FIRST CLASS provides POA with family caregiver resources as well. WAITER/WAITRESS FIRST CLASS calls Dr. Pollack's office regarding patient's presentation to ED and requests sooner f/u appt if available, WAITER/WAITRESS FIRST CLASS leaves and requests return call to POA. Patient discharged to home with POA with resources provided, [facility] case preparer and liner to follow up with patient, POA to continue to seek caregiver. Patient to f/u with outpatient providers. MARILEE Lima
== END 2024-12-18 12:52 | disposition home or self-care (01) ==
PROVIDERS: Emergency Provider Emergency Medicine; PCP Student in an Organized Health Care Education/Training Program
DX: R44.1 Visual hallucinations (principal); R44.0 Auditory hallucinations; F03.92 Unspecified dementia, unspecified severity, with psychotic disturbance; F03.918 Unspecified dementia, unspecified severity, with other behavioral disturbance; I48.91 Unspecified atrial fibrillation; Z79.01 Long term (current) use of anticoagulants; I10 Essential (primary) hypertension; Z86.73 Personal history of transient ischemic attack (TIA), and cerebral infarction without residual deficits; Z20.818 Contact with and (suspected) exposure to other bacterial communicable diseases
CPT/HCPCS: 36415; 71045; 80053; 80162; 81002; 83690; 83735; 83880; 84484; 85025; 87040; 87086; 99283; 99284

== ENCOUNTER 2024-12-26 11:47 | Emergency (ER) | payer MEDICARE, MEDICAID, SELFPAY ==
[2024-12-26] VITALS (7 sets, daily range): BP systolic 110–140; BP diastolic 65–93; PULSE 73–82; RESP 14–16; TEMP 36.7; O2SAT 96–99; BMI 32.7
--- NOTE | 2024-12-26 14:26 | DI.RAD.S_ITS ---
PROCEDURE: XR CHEST 1V INDICATIONS: Chest Pain TECHNIQUE: One view of the chest was acquired. COMPARISON: , CR, XR CHEST 1V, 12/18/2024, 10:56. FINDINGS: Surgical changes and devices: None. Lungs and pleura: Small left pleural effusion is seen. No definite focal infiltrate. No pneumothorax. Mediastinum: Mediastinal contours appear normal. Heart size is enlarged. Bones and chest wall: No suspicious bony lesions. Overlying soft tissues appear unremarkable. IMPRESSION: Cardiomegaly and small left pleural effusion. No definite focal infiltrate. No pneumothorax. Dictated by: Chad Kingsley M.D. on 12/26/2024 at 14:46 Approved by: Chad Kingsley M.D. on 12/26/2024 at 14:51
--- NOTE | 2024-12-26 14:26 | EKG_ITS ---
[address] [address] Test Date: 2024-12-26 Pat Name: [place] [facility] Department: Room: Gender: Female Waste Handling Technician: VERNA : 1940 Requested By: Order Number: [id number] Reading MD: Joshua Ruffin Measurements Intervals [place] Rate: 91 P: AK: QRS: 74 QRSD: 100 T: 43 QT: 342 QTc: 420 Interpretive Statements Atrial fibrillation Electronically Signed On 12-27-2024 18:04:00 PDT by Joshua Ruffin
[2024-12-26 15:13] LABS: Add Manual Diff / Slide Review NO; Hematocrit 40.3 % (36-46); Hemoglobin 13.5 g/dL (12.0-16.0); Lymphocytes Absolute Auto 1500 /uL (1100-4500); Mean Corpuscular HGB Conc 33.4 % (30-36); Mean Corpuscular Hemoglobin 33.3 PG (26-34); Mean Corpuscular Volume 99.8 fL (80-100); Platelet Count 225 X10^3/uL (150-400)
[2024-12-26 15:16] LABS: INR 1.4 (0.9-1.3); Prothrombin Time 15.6 SECONDS (9.4-12.5)
[2024-12-26 15:19] LABS: PTT Partial Thromboplastin Tim 38 SECONDS (25.1-36.5)
[2024-12-26 15:20] LABS: Alanine Aminotransferase 19 IU/L (<35); Albumin 4.3 g/dL (3.5-5.0); Albumin Globulin Ratio 1.2 (1.0-2.8); Alkaline Phosphatase 73 U/L (38-126); Blood Urea Nitrogen 36 mg/dL (7-17); Calcium 9.7 mg/dL (8.4-10.2); Carbon Dioxide 21 mmol/L (22-32); Chloride 110 mmol/L (98-107); Creatine Kinase 41 U/L (30-135); Estimated Glomerular Filt Rate 31 mL/min (>60); Globulin 3.6 g/dL (1.7-4.1); Glucose 122 mg/dL (70-99); Lipase 103 U/L (23-300); Magnesium 2.2 mg/dL (1.6-2.3); Sodium 140 mmol/L (137-145); Total Protein 7.9 g/dL (6.3-8.2)
[2024-12-26 15:25] LABS: HEMOLYSIS 52 (0-50)
[2024-12-26 15:26] LABS: Potassium 5.0 mmol/L (3.4-5.1)
[2024-12-26 15:32] LABS: NT-proBNP (BNP-Adult 18+) 2480 pg/mL (<450); Troponin I < 0.012 ng/mL (0.01-0.034)
--- NOTE | 2024-12-26 18:54 | ED.DIZZY ---
HPI - Dizziness General Chief Complaint: Dizziness Stated Complaint: Low blood pressure Time Seen by Provider: 12/26/24 18:09 Source: family Mode of arrival: Wheelchair History of Present Illness HPI Narrative: Pleasant 84-year-old woman with atrial fibrillation on digoxin, diltiazem, metoprolol, and Eliquis comes to the ER because of some low blood pressures with systolics in the 80s, at home and some mild dizziness. She did not syncopized or fall. She denies any chest pain, palpitations, shortness of breath. She denies any room spinning sensation. She denies any changes in vision hearing speech or swallowing. She denies any numbness tingling or weakness of any part of the body. No abdominal pain no fever chills or sweats. No other concerns or complaints at this time. Since arriving in the ER her blood pressure has been within normal limits. Of note, she did also missed her morning medications including her statin, Eliquis and Seroquel and spironolactone. She takes her metoprolol, digoxin, and diltiazem at night. Related Data Home Medications ?Medication ?Instructions ?Recorded ?Confirmed ondansetron 4 mg disintegrating 4 mg PO Q6H 09/12/24 12/18/24 tablet Previous Rx's ?Medication ?Instructions ?Recorded atorvastatin 20 mg tablet 20 mg PO DAILY #90 tabs 09/12/24 digoxin 125 mcg (0.125 mg) tablet 125 mcg PO DAILY #90 tabs 09/12/24 fluticasone propionate 50 1 spray intranasal DAILY #16 grams 09/12/24 mcg/actuation nasal spray,suspension lactulose 10 gram/15 mL oral 15 g (22.5 mL) PO TID #3,785 mL 10/15/24 solution diltiazem HCl 120 mg 120 mg PO DAILY #90 tabs 10/29/24 tablet,extended release 24 hr (Cardizem LA) quetiapine 50 mg tablet 100 mg (2 x 50 mg) PO BEDTIME #60 11/21/24 tabs apixaban 5 mg tablet (Eliquis) 5 mg PO BID #60 tabs 12/17/24 lisinopril 2.5 mg tablet 2.5 mg PO DAILY #90 tabs 12/17/24 metoprolol succinate 25 mg 75 mg (3 x 25 mg) PO DAILY #90 tabs 12/17/24 tablet,extended release 24 hr quetiapine 25 mg tablet 25 mg PO BID #60 tabs 12/17/24 spironolactone 25 mg tablet 25 mg PO DAILY #30 tabs 12/17/24 Allergies Allergy/AdvReac Type Severity Reaction Status Date / Time Penicillins Allergy Severe Anaphylaxis Verified 12/26/24 11:51 codeine AdvReac Unknown Anxiety Verified 12/26/24 11:51 Patient History Medical History (Updated 12/26/24 @ 18:51 by Jacinto Dominguez MD) A-fib Hyperlipidemia Acute on chronic heart failure Status post CVA Status post myocardial infarction Auditory hallucination Visual hallucination History of alcohol use Major neurocognitive disorder, due to multiple etiologies, with behavioral disturbance Primary osteoarthritis of right knee Social History Smoking Status: Former smoker Smoking Status: Former smoker Exam Initial Vital Signs Initial Vital Signs: Vital Signs Temperature 98.1 F 12/26/24 11:51 Pulse Rate 74 12/26/24 11:51 Respiratory Rate 16 12/26/24 11:51 Blood Pressure 122/93 H 12/26/24 11:51 Pulse Oximetry 98 12/26/24 11:51 Oxygen Delivery Method Room Air 12/26/24 11:51 Const General: cooperative, No acute distress, No in distress and No ill appearing Nutritional Appearance: average body habitus [facility] Head: normal to inspection, normocephalic and atraumatic Mouth: oropharynx normal Throat: posterior oropharynx normal Eyes General: Yes appearance normal, both eyes and all related structures Pupils: PERRL EOM: EOM intact bilaterally Neck Neck: normal visual inspection, supple, No tender and No JVD Carotids: no bruits Chest Chest: normal inspection of the chest Resp Effort & Inspection: normal respiratory effort Auscultation: clear to auscultation bilaterally Cardio Rate: regular rate Rhythm: regular rhythm Heart Sounds: S1 normal and S2 normal GI Inspection: normal to inspection and non-distended Palpation: soft, No firm, No guarding and No tender Auscultation: normal bowel sounds General: No CVA tenderness Back/Spine/Pelvis Back: normal to inspection Neuro General: patient alert, patient awake and oriented (known dementia, 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 Her EKG that was done prior to my arrival showed AFib with a rate in the 90s to low 100s. She was in the 80s when I saw her. The remainder of her vital signs were normal including her blood pressure which was mildly hypertensive. She was not having any active symptoms. I suspect that she may have been having a run of AFib which caused her dizziness and low blood pressures earlier however this has resolved. The patient is already on maximum medical management and is scheduled to have a Watchman in the near future. Her recent cardiology note also notes a upcoming echo which the patient states she has not done yet. Therefore, I advised the patient to resume all of her usual medications starting this evening and to not try to take any of the medications that she was supposed to take this morning. And to resume her morning medications and usual medication regimen medical regimen starting tomorrow and also call her PCP tomorrow to be seen as soon as possible. I also advised her to see your air traffic supervisor as soon as possible to see if the Watchman can be expedited to help avoid symptoms like she had today. The patient and her manager of application development were both in agreement with this plan. Orders Ordered: ED Orders 12/26/24 14:26 XR chest 1V Stat EKG-12 Lead Stat 12/26/24 14:50 Complete Blood Count AUTO DIFF Stat Comprehensive Metabolic Panel Stat Digoxin Stat Lipase Stat Magnesium Stat NT-proBNP (BNP-Adult 18+) Stat PTT Partial Thromboplastin Conor Stat Prothrombin Time INR Stat Troponin & CK Cardiac Panel Stat 12/26/24 18:30 Trop I [Troponin I] Stat 12/26/24 18:33 Urine Culture Stat Urine Microscopic Stat Discontinued Medications Aspirin (Aspirin 81 Mg Chew Tab) 324 mg PO NOW ONE Stop: 12/26/24 14:26 Vital Signs Vital signs: Vital Signs - 8 hr 12/26/24 11:51 12/26/24 14:24 12/26/24 16:49 Temperature 98.1 F Pulse Rate 74 80 74 Respiratory Rate 16 16 16 Blood Pressure 122/93 H 114/76 110/65 Pulse Oximetry 98 97 98 Oxygen Delivery Method Room Air Room Air Room Air 12/26/24 18:08 12/26/24 18:31 12/26/24 18:35 Temperature Pulse Rate 80 79 Respiratory Rate Blood Pressure 140/78 Pulse Oximetry 98 96 Oxygen Delivery Method 12/26/24 18:35 Temperature Pulse Rate 82 Respiratory Rate Blood Pressure Pulse Oximetry 99 Oxygen Delivery Method MDM - Dizziness Differential Diagnosis Differential diagnosis: Likely adverse reaction to drug, benign paroxysmal positional vertigo, orthostatic hypotension, vertebral basilar insufficiency, cerebrovascular accident and other ( a fib. cardiac valve, [place], ) Lab Data 12/26/24 14:50 12/26/24 14:50 Labs: Lab Results 12/26/24 Range/Units 14:50 WBC 5.4 (4.5-11.0) X10^3/uL RBC 4.04 (4.0-5.2) X10^6/uL Hgb 13.5 (12.0-16.0) g/dL Hct 40.3 (36-46) % MCV 99.8 (80-100) fL MCH 33.3 (26-34) PG MCHC 33.4 (30-36) % RDW 13.3 (11.6-14.8) % Plt Count 225 (150-400) X10^3/uL Neut % (Auto) 57.2 (50-75) % Lymph % (Auto) 27.5 (25-40) % [place] % (Auto) 9.4 (3-14) % Eos % (Auto) 5.1 H (2-4) % Baso % (Auto) 0.8 (0-2) % Neut # (Auto) 3100 (5160-6316) /uL Lymph # (Auto) 1500 (8443-3762) /uL [place] # (Auto) 500 (0-900) /uL Eos # (Auto) 300 (0-450) /uL Baso # (Auto) 0 (0-100) /uL PT 15.6 H (9.4-12.5) SECONDS INR 1.4 H (0.9-1.3) APTT 38 H (25.1-36.5) SECONDS Sodium 140 (137-145) mmol/L Potassium 5.0 (3.4-5.1) mmol/L Chloride 110 H (98-107) mmol/L Carbon Dioxide 21 L (22-32) mmol/L BUN 36 H (7-17) mg/dL Creatinine 1.63 H (0.52-1.04) mg/dL Estimated GFR 31 L (>60) mL/min BUN/Creatinine Ratio 22.1 H (6-22) Glucose 122 H (70-99) mg/dL Calcium 9.7 (8.4-10.2) mg/dL Magnesium 2.2 (1.6-2.3) mg/dL Total Bilirubin 0.8 (0.2-1.3) mg/dL AST 31 (14-36) IU/L ALT 19 (<35) IU/L Alkaline Phosphatase 73 (38-126) U/L Total Creatine Kinase 41 (30-135) U/L Troponin I < 0.012 (0.01-0.034) ng/mL NT-Pro-B Natriuret Pep 2480 H (<450) pg/mL Total Protein 7.9 (6.3-8.2) g/dL Albumin 4.3 (3.5-5.0) g/dL Globulin 3.6 (1.7-4.1) g/dL Albumin/Globulin Ratio 1.2 (1.0-2.8) Lipase 103 D (23-300) U/L Urine Dip Bedside Urine Glucose Negative Bedside Urine Bilirubin - Negative Bedside Urine Ketone - Negative Urine Specific [place] 1.020 Bedside Urine Occult Blood - Negative Bedside Urine pH 6.0 Bedside Urine Protein +/- 15 Bedside Urine Urobilinogen - Negative Bedside Urine Nitrite - Negative Bedside Urine Leukocytes - Negative Esterase ECG Data Interpretation: A Fib Rate 101. Discharge Plan Departure Patient Disposition: Home Clinical Impression: Atrial fibrillation Qualifiers: Atrial fibrillation type: paroxysmal Qualified Code(s): I48.0 - Paroxysmal atrial fibrillation Instructions: Atrial Fibrillation Activity Restrictions/Additional Instructions: If there is any change or worsening in her condition such as lightheadedness, feeling like you are going to pass out, shortness of breath, chest pain or any other concerns and please call 911 or return to the ER right away. Otherwise, please take her evening medications as prescribed and continue to resume your usual medication regimen in the morning as well. Otherwise, please follow-up with your PCP and your air traffic supervisor as soon as possible as well. Prescriptions: No Action diltiazem HCl [Cardizem LA] 120 mg tablet extended release 24 hr 120 mg PO DAILY Qty: 90 3RF ondansetron 4 mg tablet,disintegrating 4 mg PO Q6H atorvastatin 20 mg tablet 20 mg PO DAILY Qty: 90 3RF digoxin 125 mcg (0.125 mg) tablet 125 mcg PO DAILY Qty: 90 3RF Rx Instructions: hold if HR < 60 fluticasone propionate 50 mcg/actuation spray,suspension 1 spray intranasal DAILY Qty: 16 3RF Rx Instructions: administer into each nostril lactulose 10 gram/15 mL solution 15 g PO TID Qty: 3785 3RF quetiapine 50 mg tablet 100 mg PO BEDTIME Qty: 60 6RF Eliquis 5 mg tablet 5 mg PO BID Qty: 60 3RF lisinopril 2.5 mg tablet 2.5 mg PO DAILY Qty: 90 3RF spironolactone 25 mg tablet 25 mg PO DAILY Qty: 30 3RF quetiapine 25 mg tablet 25 mg PO BID Qty: 60 5RF metoprolol succinate 25 mg tablet extended release 24 hr 75 mg PO DAILY Qty: 90 5RF methylprednisolone acetate [Depo-Medrol] 40 mg/mL suspension 40 mg IM ONCE Qty: 40 0RF Referrals: Jaja Conrad MD [Primary Care Provider, Family Practice] - As soon as possible Stand Alone Forms: Patient Portal/API
[2024-12-26 18:58] LABS: Digoxin 0.4 ng/mL (0.8-2.0)
--- NOTE | 2024-12-27 03:39 | EKG_ITS ---
[address] [address] Test Date: 2024-12-26 Pat Name: Indiana Heath Department: Room: Gender: Female [place] Marker: VERNA : 1940 Requested By: Order Number: [id number] Reading MD: Joshua Ruffin Measurements Intervals [place] Rate: 101 P: FL: QRS: 78 QRSD: 104 T: 62 QT: 350 QTc: 453 Interpretive Statements Atrial fibrillation with rapid ventricular response Cannot rule out Anterior infarct , age undetermined Electronically Signed On 12-27-2024 18:04:09 PDT by Joshua Ruffin
== END 2024-12-26 19:15 | disposition home or self-care (01) ==
PROVIDERS: Emergency Medicine; Emergency Provider Emergency Medicine; PCP Student in an Organized Health Care Education/Training Program
DX: I48.0 Paroxysmal atrial fibrillation (principal); I10 Essential (primary) hypertension; Z79.01 Long term (current) use of anticoagulants; Z87.891 Personal history of nicotine dependence
CPT/HCPCS: 71045; 80053; 80162; 81003; 81015; 82550; 83690; 83735; 83880; 84484; 85025; 85610; 85730; 87086; 93005; 99283; 99284

== ENCOUNTER → 2025-01-02 12:09 | Outpatient (CLI) | payer MEDICARE, MEDICAID, SELFPAY ==
--- NOTE | 2025-01-02 12:10 | DI.ECHO.S_ITS ---
[facility] : : [address] : : [place] : : [id number] : : Phone: [phone] Echocardiogram Report + + :Name: RAEGAN STONE Study Date: 01/02/2025 Height: 67 in : :[facility] ReadingLocation: Weight: 220 lb: : Gender: Female BSA: 2.1 m2 : :: 1940 Age: 84 yrs : :Reason For Study: CHRONIC SYSTOLIC HEART FAILURE : :Ordering Physician: ALEC KINGSLEY Performed By: Radha Tatum : :Referring: ALEC KINGSLEY : + + Interpretation Summary 1. The left ventricular contractility is normal. Estimated ejection fraction is greater than 55% with no segmental wall motion abnormalities. Mild asymmetrical septal hypertrophy without obstruction. Unable to comment on diastolic function. 2. The right ventricular contractility is normal. 3. Severe left atrial enlargement. All other cardiac chambers are of normal size. 4. Trace to mild mitral regurgitation. 5. Moderate aortic valvular stenosis with peak velocity of 2.8 m/s. There is limited leaflet movement of the noncoronary cusp. 6. Mild to moderate eccentric tricuspid regurgitation with estimated pulmonary systolic artery pressures of 32 mmHg. 7. No obvious intracardiac shunts. 8. No obvious intracardiac masses nor thrombi. 9. No hemodynamically significant pericardial effusion. 10. Low right-sided filling pressures. Conclusion: Normal biventricular systolic function with mild to moderate valvular disease. Procedure: A two-dimensional transthoracic echocardiogram with color flow and Doppler was performed. The study quality was technically adequate. There is no prior echocardiogram noted for this patient. The patient was in atrial fibrillation with heart rates between 77-90 bpm during the exam. Left Ventricle: The left ventricle is normal in size. There is mild asymmetric left ventricular hypertrophy. The ejection fraction is estimated to be 55-60%. Diastolic function could not be accurately assessed due to atrial fibrillation. Right Ventricle: The right ventricle is normal in size and function. Atria: The left atrium is severely dilated. Right atrial size is normal. There is no Doppler evidence for an interatrial shunt. Mitral Valve: There is mild mitral annular calcification. The mitral valve leaflets appear mildly thickened. There is mild mitral regurgitation. Aortic Valve: The aortic valve is moderately calcified. There is discrete nodular thickening of the non- coronary cusp. The peak aortic velocity is 2.8 m/sec. The aortic valve mean gradient is 18 mmHg. The calculated aortic valve area is 1.2 cm2. There is trace aortic regurgitation. Tricuspid Valve: The tricuspid valve leaflets are thin and pliable. There is mild to moderate tricuspid regurgitation. The right ventricular systolic pressure is estimated to be at least 32 mmHg based on an estimated right atrial pressure of 3 mm Hg. Pulmonic Valve: The pulmonic valve leaflets are thin and pliable; valve motion is normal. There is mild pulmonic regurgitation. Great Vessels: The aortic root is normal size. The dimensions of the ascending aorta are normal. The IVC is of normal diameter and collapses greater than 50% with a sniff. This suggests a low right atrial pressure of 3 mm Hg. Pericardium/ Pleura There is no pericardial effusion. There is no pleural effusion. MMode/2D Measurements & Calculations LVIDd: 4.2 cm LVOT diam: 2.3 cm LVIDs: 3.1 cm Ao root diam: 3.4 cm FS: 26.9 % asc Aorta Diam: 3.3 cm IVSd: 1.3 cm Ao Arch Diam (Prox Trans): 2.8 cm LVPWd: 0.83 cm LV millan. diameter/BSA (cm/m^2): 2.0 LV sys. diameter/BSA (cm/m^2): 1.5 LA A2 area: 32.0 cm2 RA long axis: 5.3 cm LA A4 area: 33.8 cm2 RA area: 18.0 cm2 LA length (vol): 7.1 cm RA vol: 52.0 ml LA vol: 130.4 ml RA : 24.7 ml/m2 LA vol index: 61.9 ml/m2 IVC diam: 0.77 cm RVD1 (basal): 3.7 cm RVD2 (mid): 3.4 cm TAPSE: 1.9 cm Doppler Measurements & Calculations Ao V2 max: 281.4 cm/sec LVOT Max Alexis: 78.0 cm/sec Ao V2 mean: 188.3 cm/sec LV V1 max P.4 mmHg Ao max P.7 mmHg LV V1 VTI: 17.7 cm Ao mean P.9 mmHg VEENA(I,D): 1.4 cm2 Ao V2 VTI: 53.4 cm VEENA(V,D): 1.2 cm2 sev ratio: 0.33 VEENA indexed to BSA (cm^2/m^2): 0.68 MV E max alexis: 87.4 cm/sec TR max alexis: 269.6 cm/sec Med Peak E' Alexis: 7.6 cm/sec TR max P.1 mmHg E/E' med: 11.4 PA V2 max: 96.9 cm/sec Lat Peak E' Alexis: 10.6 cm/sec PA V2 mean: 62.5 cm/sec E/E' lat: 8.3 PA mean P.8 mmHg E/e' average: 9.9 PA pr(Accel): 39.6 mmHg MV dec time: 0.17 sec SV(LVOT): 76.9 ml Reading Physician:LIZ
== END ==
LOC: ECHO 12:10
PROVIDERS: PCP Student in an Organized Health Care Education/Training Program; Referring Provider Internal Medicine; Visit Provider Internal Medicine
DX: I08.1 Rheumatic disorders of both mitral and tricuspid valves (principal); I50.22 Chronic systolic (congestive) heart failure
CPT/HCPCS: 93306